=== PATIENT | male | born 1985 | race African-American/Black ===

== ENCOUNTER 2024-08-03 22:12 | Emergency (ER) | payer MEDICAID, OTHER ==
[~2024-08-03] VITALS: Ht 180.3 cm; Wt 65.5 kg
[2024-08-03 23:48] VITALS: BP 109/76; PULSE 89; RESP 18; TEMP 97.9; O2SAT 98
[2024-08-04] MEDS ORDERED: HYD25RS PR (00:46)
--- NOTE | 2024-08-04 00:46 | ED.PDOC ---
GI ASSESSMENT HPI Comments This is a 38-year-old male presents to the ED chief complaint rectal pain. Patient states rectal pain started during and after a bowel movement x1 today. Reports no blood on the toilet paper in the toilet bowl. 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 Denies nausea, vomiting, dizziness, abdominal pain, chest pain, shortness of breath or difficulty breathing. Chief Complaint: Rectal Pain Time Seen by MD: 22:43 Reviewed Notes: Nurses Notes, Medications, Allergies Home Meds Active Scripts Hydrocortisone Acetate (ANUCORT-HC SUPPOSITORY) 25 Mg Holguin, 25 MG MT BID for 7 Days, #14 SUPP Prov:TUCKER GEORGE LAN ENGINEER 08/04/24 Information Source: Patient Mode of Arrival: Ambulatory Past Medical History PAST MEDICAL HISTORY: Denies Surgical History: Denies all surgeries Family History Family History: Unknown Social History Smoker: Non-Smoker Alcohol: Denies ETOH Use Drugs: Denies Drug Use Constitutional: denies: chills, diaphoresis, fatigue, fever, malaise, sweats, weakness, others EENTM: denies: blurred vision, double vision, ear bleeding, ear discharge, ear drainage, ear pain, ear ringing, eye pain, eye redness, hearing loss, mouth pain, mouth swelling, nasal discharge, nose bleeding, nose congestion, nose pain, photophobia, tearing, throat pain, throat swelling, voice changes, others Respiratory: denies: cough, hemoptysis, orthopnea, SOB at rest, shortness of breath, SOB with excertion, stridor, wheezing, others Cardiovascular: denies: chest pain, dizzy spells, diaphoresis, Dyspnea on exertion, edema, irregular heart beat, left arm pain, lightheadedness, palpitations, PND, syncope, others Gastrointestinal: reports: rectal pain; denies: abdomen distended, abdominal pain, blood streaked bowels, constipated, diarrhea, dysphagia, difficulty swallowing, hematemesis, melena, nausea, poor appetite, poor fluid intake, rectal bleeding, vomiting, others Genitourinary: denies: burning, dysuria, flank pain, frequency, hematuria, incontinence, penile discharge, penile sore, pain, testicle pain, testicle swelling, urgency, others Neurological: denies: dizziness, fainting, headache, left sided numbness, left sided weakness, numbness, paresthesia, pre-existing deficit, right sided numbness, right sided weakness, seizure, speech problems, tingling, tremors, weakness, others Integumetry: denies: bruises, change in color, change in hair/nails, dryness, laceration, lesions, lumps, rash, wounds, others Allergic/Immunocompromised: denies: Difficulty Healing, Frequent Infections, Hives, Itching, others Hematologic/Lymphatic: denies: anemia, blood clots, easy bleeding, easy bruising, swollen glands, others Endocrine: denies: excessive hunger, excessive sweating, excessive thirst, excessive urination, flushing, intolerance to cold, intolerance to heat, unexplained weight gain, unexplained weight loss, others Physical Exam General Appearance: No Apparent Distress, Normal HEENT: Pharynx Normal Neck: Full Range of Motion, Non-Tender Respiratory: Lungs Clear, No Respiratory Distress, Normal Breath Sounds Cardiovascular: No Murmur, Normal Peripheral Pulses, Regular Rate/Rhythm Breast Exam: Deferred Gastrointestinal: No Organomegaly, Non Tender, No Pulsatile Mass, Normal Bowel Sounds, Soft Genitalia: Deferred Pelvic: Deferred Rectal: Deferred (Patient refused rectal exam) Extremities: No calf tenderness, Normal capillary refill, Normal inspection, Normal range of motion, Non-tender, No pedal edema Musculoskeletal : Apperance: Normal Neurologic: Alert, self rising flour mixer II-XII nml as Tested, No Motor Deficits, Normal Affect, Normal Mood, No Sensory Deficits Cerebellar Function: Normal Reflexes: Normal Skin: Dry, Normal Color, Warm Lymphatic: No Adenopathy Was a procedure done? Was a procedure done?: No GI differential Dx Differential Diagnosis: GI hemorrhage, Inflammatory BD, Ischemic Bowel X-Ray, Labs, Meds, VS Vital Signs Date Time Temp Pulse Resp B/P (MAP) Pulse Ox O2 Delivery O2 Flow Rate FiO2 08/03/24 23:48 97.9 89 18 109/76 (87) 98 97.9 08/03/24 22:20 97.9 89 18 109/76 (87) 98 97.9 X-Ray, Labs, Meds, VS Comment Patient refused rectal exam. Based on symptoms and history this is likely an internal hemorrhoid we will trial hydrocortisone rectal. Advised patient to follow up with his PCP in 2-3 days. Take medication as prescribed side effects discussed. ER return precautions given patient indicates understanding agrees with discharge plan of care Time of 1ST Reevaluation: 00:30 Reevaluation 1ST: Unchanged Patient Education/Counseling: Diagnosis, Treatment, Prognosis, Need For Follow Up Family Education/Counseling: Diagnosis, Treatment, Prognosis, Need For Follow Up Departure 1 Departure Time of Disposition: 00:34 Impression: Primary Impression: Internal hemorrhoids without complication Disposition: HOME / SELF CARE / HOMELESS Condition: Stable e-Prescriptions Hydrocortisone Acetate (ANUCORT-HC SUPPOSITORY) 25 Mg Holguin 25 MG MT BID for 7 Days, #14 SUPP Prov: TUCKER GEORGE 08/04/24 Discharged With: Spouse Critical Care Note Critical Care Time?: No Stability Stability form required: TUCKER Jacobs Aug 04, 2024 00:46
== END 2024-08-04 01:09 | disposition home or self-care (01) ==
LOC: ER 22:12
DX: K64.8 Other hemorrhoids (principal); K59.00 Constipation, unspecified; Z79.899 Other long term (current) drug therapy